=== PATIENT | male | born 1980 | race Asian ===

== ENCOUNTER 2018-03-05 00:07 | Emergency (ER) | payer SELFPAY ==
[2018-03-05 00:20] VITALS: BP 142/89
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
[2018-03-05] MEDS ORDERED: MOTRIN PO ONE (01:34)
== END 2018-03-05 02:50 | disposition home or self-care (01) ==
LOC: ED 00:07
DX: M54.42 Lumbago with sciatica, left side (principal); M54.41 Lumbago with sciatica, right side; F12.10 Cannabis abuse, uncomplicated; V49.49XA Driver injured in collision with other motor vehicles in traffic accident, initial encounter; Y93.89 Activity, other specified; Y92.89 Other specified places as the place of occurrence of the external cause; Y99.8 Other external cause status
CPT/HCPCS: 99282

== ENCOUNTER 2018-06-22 06:08 | Emergency (ER) | payer SELFPAY ==
[2018-06-22 06:22] VITALS: BP 124/85
[2018-06-22] MEDS ORDERED: DECADRON IM ONE (07:29)
--- NOTE | 2018-06-22 07:37 | Emergency Department Report ---
Minor Respiratory - HPI Chief Complaint: Earache Stated Complaint: CANT HEAR OUT OF LEFT EAR Time Seen by Provider: 06/22/18 07:08 Duration: 5 Days Pain Location: Ear Minor Respiratory: Yes Able to Tolerate Fluids, Yes Ear Pain, No Rhinorrhea, No Sore Throat, No Cough, No Sick Contacts, No Hemoptysis, No Chest Pain, No Shortness of Breath, No Fever Other History: co left ear pain. pt has been self medicating with amox for 5 days but he states ear is no better. educated on importance of not self medicating. ED Review of Systems ROS: Stated complaint: CANT HEAR OUT OF LEFT EAR Other details as noted in HPI Comment: All other systems reviewed and negative Constitutional: denies: chills Eyes: denies: eye pain ENT: ear pain Respiratory: denies: cough Cardiovascular: denies: palpitations Endocrine: denies: excessive sweating Gastrointestinal: denies: nausea Genitourinary: denies: dysuria Musculoskeletal: denies: back pain Skin: denies: lesions Neurological: denies: headache Psychiatric: denies: anxiety Hematological/Lymphatic: denies: easy bleeding ED Past Medical Hx - Past Medical History Previous Medical History?: No - Surgical History Past Surgical History?: No - Social History Smoking Status: Never Smoker Substance Use Type: None - Medications Home Medications: Home Medications Medication Instructions Recorded Confirmed Last Taken Type Ciprofloxacin HCl [Cipro] 500 mg PO BID #20 tablet 06/22/18 Unknown Rx Minor Respiratory Exam - Exam General: Vital signs noted. No distress. Alert and acting appropriately. HEENT: Yes Pharyngeal Erythema, Yes Moist Mucous Membranes, No Pharyngeal Exudates, No Rhinorrhea, No Conjuctival Injection, No Frontal Tenderness, No Maxillary Tenderness Ear: Left TM Bulge, Left TM Erythema, Left EAC Pain Neck: Yes Supple, No Adenopathy Lungs: Yes Good Air Exchange, No Wheezes, No Ronchi, No Stridor, No Cough, No Labored Respirations, No Retractions, No Use of Accessory Muscles, No Other Abnormal Lung Sounds Heart: Yes Regular, No Murmur Abdomen: Yes Normal Bowel Sounds, No Tenderness, No Peritoneal Signs Skin: No Rash, No Edema Neurologic: Alert and oriented, no deficits. Musculoskeletal: Unremarkable. ED Course Vital Signs 06/22/18 06/22/18 06:13 06:24 Temperature 97.8 F 97.8 F Pulse Rate 62 62 Respiratory 18 16 Rate Blood Pressure 124/85 124/85 O2 Sat by Pulse 99 99 Oximetry ED Medical Decision Making - Medical Decision Making left OM no cerumen impaction - Differential Diagnosis OM Critical care attestation.: If time is entered above; I have spent that time in minutes in the direct care of this critically ill patient, excluding procedure time. ED Disposition Clinical Impression: Otitis media Qualifiers: Otitis media type: unspecified Chronicity: acute Qualified Code(s): H66.90 - Otitis media, unspecified, unspecified ear Disposition: DC- TO HOME OR SELFCARE Is pt being admited?: No Does the pt Need Aspirin: No Condition: Stable Instructions: Otitis Media (ED) Additional Instructions: TAKE THIS MEDICATION UNTIL GONE DO NOT PUT ANY DROPS IN YOUR EARS MOTRIN OR TYLENOL FOR PAIN AND INFLAMMATION IF PERSISTS PAST 10 DAYS FOLLOW UP WITH ENT SEE REFERRAL BELOW. Referrals: PRIMARY CAREMD [Primary Care Provider] - 3-5 Days PRERNA SHARMA MD [Staff Physician] - 3-5 Days Time of Disposition: 07:34
== END 2018-06-22 07:46 | disposition home or self-care (01) ==
LOC: ED 06:08
DX: H66.92 Otitis media, unspecified, left ear (principal)
CPT/HCPCS: 96372; 99282; J1100